=== PATIENT | female | born 1985 ===

== ENCOUNTER 2022-01-24 15:00 | Outpatient (RCR) | payer OTHER, SELFPAY | END 2022-01-24 15:46 | disposition home or self-care (01) | LOC: HO.PT 15:00 | PROVIDERS: Absent Provider Nurse Practitioner Primary Care; PCP Pediatrics; Visit Provider Midwife | DX: M53.3 Sacrococcygeal disorders, not elsewhere classified (principal); R10.2 Pelvic and perineal pain | CPT/HCPCS: 97110; 97112; 97140; 97162 ==